=== PATIENT | female | born 1980 | race Caucasian/White ===

== ENCOUNTER 2017-08-06 21:33 | Inpatient (IN) | payer MEDICAID ==
[2017-08-06 22:18] LABS: APPEARANCE,URINE SLIGHTLY-CLOUDY; BILIRUBIN,URINE NEGATIVE (NEGATIVE); GLUCOSE, URINE >=500 mg/dL (NEGATIVE); KETONES,URINE TRACE mg/dL (NEGATIVE); LEUKOCYTE ESTERASE,URINE TRACE (NEGATIVE); NITRITE,URINE NEGATIVE (NEGATIVE); PROTEIN,URINE 30 mg/dL (NEGATIVE); URINE SPECIFIC GRAVITY 1.033; UROBILINOGEN,URINE NEGATIVE mg/dL (<2.0)
[2017-08-06 22:29] LABS: ABSOLUTE LYMPHOCYTES (AUTO) 2.1 10^3/uL (0.5-4.7); ABSOLUTE MONOCYTES (AUTO) 0.7 10^3/uL (0.1-1.4); ABSOLUTE NEUT (AUTO) 11.8 10^3/uL (1.7-8.2); BASOPHILS % (AUTO) 0.3 % (0-2); EOSINOPHILS % (AUTO) 0.2 % (0-6); HEMATOCRIT 40.8 % (36.0-47.0); HEMOGLOBIN 13.9 g/dL (12.0-15.5); HGB HCT DIFFERENCE 0.9; LYMPHOCYTES % (AUTO) 14.2 % (13-45); MEAN CORPUSCULAR HEMOGLOBIN 31.1 pg (27.0-33.4); MEAN CORPUSCULAR HGB CONC 34.1 g/dL (32.0-36.0); MEAN CORPUSCULAR VOLUME 91 fl (80-97); MONOCYTES % (AUTO) 4.5 % (3-13); RED BLOOD COUNT 4.49 10^6/uL (3.72-5.28); RED CELL DISTRIBUTION WIDTH 13.1 % (11.5-14.0); SEGMENTED NEUTROPHILS % (AUTO) 80.8 % (42-78); WHITE BLOOD COUNT 14.6 10^3/uL (4.0-10.5)
[2017-08-06] MEDS ORDERED: DINOPROSTONE 10 MG VAGINAL INSERT.SR PV PRN (22:44)
[2017-08-06] MEDS ORDERED: ACETAMINOPHEN 325 MG TABLET PO PRN (22:45)
[2017-08-06 22:46] LABS: URINE BARBITURATES SCREEN NEGATIVE; URINE METHADONE SCREEN NEGATIVE; URINE OPIATES LOW NEGATIVE; URINE PHENCYCLIDINE SCREEN NEGATIVE
[2017-08-06] MEDS ORDERED: ZOLPIDEM TARTRATE 5 MG TABLET PO PRN (22:46)
[2017-08-06] MEDS ORDERED: MAG HYDROX/AL HYDROX/SIMETH SUSP 30 ML UDCUP PO PRN (22:46)
[2017-08-06 22:50] LABS: ALANINE AMINOTRANSFERASE 40 U/L (9-52); ALBUMIN 3.3 g/dL (3.5-5.0); ALKALINE PHOSPHATASE 175 U/L (38-126); ANION GAP 12 (5-19); ASPARTATE AMINO TRANSFERASE 22 U/L (14-36); BILIRUBIN,DIRECT 0.3 mg/dL (0.0-0.4); BILIRUBIN,TOTAL 0.3 mg/dL (0.2-1.3); BLOOD UREA NITROGEN 15 mg/dL (7-20); CALCIUM 9.1 mg/dL (8.4-10.2); CARBON DIOXIDE 17 mmol/L (22-30); CHLORIDE 108 mmol/L (98-107); CREATININE RESULT 1.08 mg/dL (0.52-1.25); GLUCOSE 118 mg/dL (75-110); POTASSIUM 3.9 mmol/L (3.6-5.0); SODIUM 136.7 mmol/L (137-145); TOTAL PROTEIN 5.2 g/dL (6.3-8.2)
[2017-08-06] MEDS ORDERED: DINOPROSTONE 10 MG VAGINAL INSERT.SR ONE (22:55)
[2017-08-06] MEDS ORDERED: RINGERS SOLUTION,LACTATED 1,000 ML IV PRN (23:08)
[2017-08-06] MEDS ORDERED: RINGERS SOLUTION,LACTATED 1,000 ML IV ONE (23:45)
[2017-08-07] MEDS ORDERED: ZOLPIDEM TARTRATE 5 MG TABLET ONE ×2 (00:44→00:46)
[2017-08-07] MEDS ORDERED: PENICILLIN G-K 5 MILLION UNIT VIAL IV ONE ×2 (07:00→11:00)
[2017-08-07] MEDS ORDERED: PENICILLIN G POTASSIUM 5,000,000 UNIT in DEXTROSE 5%-WATER 100 ML IV SCH (07:00)
[2017-08-07] MEDS ORDERED: PENICILLIN G-K 5 MILLION UNIT VIAL ONE ×2 (10:31→14:15)
--- NOTE | 2017-08-07 10:39 | L&D Progress Notes ---
PROGRESS NOTES Datetime Report Generated by CPN: 08/07/2017 10:38 PROGRESS NOTE Impression: Normal Progression of Labor; Reassuring Heart Rate Impression: Normal Progression of Labor; Reassuring Heart Rate Procedures: Sterile Vag Exam Procedures: Sterile Vag Exam Procedures- Other: srom, cervidil removed Procedures- Other: srom, cervidil removed Plan: Continue Present Management; Induction Plan: Continue Present Management; Induction Plan Other: start pitocin Informed Consent Obtained: Vaginal Delivery Informed Consent Obtained: Vaginal Delivery Vital Signs : Reviewed Vital Signs : Reviewed Comment: Start pcn Pit per protocol anticipate VAGINAL EXAM Dilatation: 4 Dilatation: 4 Effacement: 100 Effacement: 100 Station: 0 Station: 0 Contractions: 2-3 Contractions: 2-3 MEMBRANES Membranes: Ruptured Membranes: Intact Amniotic Fluid Color: Clear FETUS A FHR - Baseline: 135 Monitoring: External US Variability: Moderate 6-25bpm Accelerations: 15X15 Decelerations: None FHR Category: Category I Estimated Weight (gm): 3200 Estimated Weight (gm): 3200 Presentation: Vertex SIGNATURE SIGNATURE: [id number] SIGNATURE: [id number] Assignment: Duran Patterson MD Signature: with User ID: [email or web address] : with User ID: [email or web address]
[2017-08-07] MEDS ORDERED: PENICILLIN G POTASSIUM 2,500,000 UNIT in DEXTROSE 5%-WATER 50 ML IV SCH (11:00)
[2017-08-07] MEDS ORDERED: OXYTOCIN/NORMAL SALINE 20 UNIT/1,000 ML RTUINJ IV PRN ×2 (11:24→16:03)
[2017-08-07] MEDS ORDERED: OXYTOCIN/NORMAL SALINE 20 UNIT/1,000 ML RTUINJ ONE (11:27)
[2017-08-07] MEDS ORDERED: LIDOCAINE 1% INJ-PF (10 MG/ML) 30 ML SDV ONE (12:36)
[2017-08-07] MEDS ORDERED: MISOPROSTOL 0.2 MG TABLET ONE (12:36)
[2017-08-07] MEDS ORDERED: MEASLES,MUMPS&RUBELLA VACC/PF 0.5 ML VIAL SUBCUT PRN (16:03)
[2017-08-07] MEDS ORDERED: ACETAMINOPHEN WITH CODEINE #3 TABLET PO PRN ×2 (16:03)
[2017-08-07] MEDS ORDERED: ZOLPIDEM TARTRATE 5 MG TABLET PO PRN (16:03)
[2017-08-07] MEDS ORDERED: DIBUCAINE 1% OINTMENT 28 GM TP PRN (16:03)
[2017-08-07] MEDS ORDERED: BENZOCAINE/MENTHOL AEROSOL SPRAY 56 ML TOP PRN (16:03)
[2017-08-07] MEDS ORDERED: DIPH/PERTUSS(ACELL)/TETANUS VAC/PF 0.5 ML SYR (>=10YO) IM PRN (16:03)
--- NOTE | 2017-08-07 17:12 | Admission Physical ---
Datetime Report Generated by CPN: 08/07/2017 17:12 CURRENT ADMISSION Hx Assessment: The History has been Reviewed and is Current Chief Complaint: Scheduled Induction of Labor Indication for Induction: Maternal Diabetes Indication for Induction: Term, Intrauterine ; No Active Labor; Intact Membranes; Induction of Labor Indication for Induction- Other: AMA Admit Plan: Admit to Unit; Initiate Labor Induction Protocol ALLERGIES Medication Allergies: No Medication Allergies: No Known Allergies (08/06/2017) Medication Allergies: No Known Allergies (07/24/2017) Latex: No Latex Allergies OBSTETRICAL HISTORY EDC: 08/07/2017 00:00 : 2 Para: 0 Term: 0 : 0 SAB: 0 IAB: 1 Ectopic: 0 Livin Cesareans: 0 VBACs: 0 Multiple Births: 0 Gestational Diabetes: Yes Rh Sensitization: No Incompetent Cervix: No EDNA: No Infertility: No ART Treatment: No Uterine Anomaly: No IUGR: No Hx Previous C/S: No Macrosomia: No Hx Loss/Stillborn: No PIH: No Hx : No Placenta Previa/Abruption: No Depression/PP Depression: No PTL/PROM: No Post Hemorrhage: No Current Procedures: Ultrasound; NST Obstetrical History Comments: G1- IAB G2- current SEE RECORDS Alcohol: No Marijuana : No Cocaine: No Other Illicit Drugs: No Cigarettes: Current Everyday Smoker. [id number] Cigarette Frequency: > 10 per day Advised to Stop: Yes Cigarette Comments: About a pack a day MEDICAL HISTORY Diabetes: Yes Diabetes Type: Gestational Diabetes Blood Transfusion: No Pulmonary Disease (Asthma, TB): No Breast Disease: No Hypertension: No Egg Producer Surgery: No Heart Disease: No Hosp/Surgery: Yes Autoimmune Disorder: No Anesthetic Complications: No Kidney Disease: No Abnormal Pap Smear: No Neuro/Epilepsy: No Psychiatric Disorders: Yes Other Medical Diseases: No Hepatitis/Liver Disease: No Significant Family History: No Varicosities/Phlebitis: No Trauma/Violence : No Thyroid Dysfunction: No Medical History Comments: [place] teeth removed, anxiety (never taken any meds for anxiety) INFECTIOUS HISTORY Gonorrhea: No Genital Herpes: No Chlamydia: No Tuberculosis: No Syphilis: No Hepatitis: No HIV/AIDS Exposure: No Rash or Viral Illness: No HPV: No Infectious History Comments: Genital warts PHYSICAL EXAM General: Normal HEENT: Normal Neurologic: Normal Thyroid: Deferred Heart: Normal Lungs: Normal Breast: Normal Back: Normal Abdomen: Normal Genitourinary Exam: Normal Extremities: Normal DTRs: Normal Pelvic Type: Adequate Vital Signs: Reviewed VAGINAL EXAM Dilatation: 4 Dilatation: 4 Effacement: 100 Effacement: 100 Station: 0 Station: 0 Contraction Comments: 2-3 Contraction Comments: 2-3 MEMBRANES Membranes: Ruptured Membranes: Intact Amniotic Fluid Color: Clear FETUS A EGA: 40.0 Monitoring: External US FHR- Baseline: 135 Variability: Moderate 6-25bpm Accelerations: 15X15 Decelerations: None FHR Category: Category I Estimated Weight (gm): 3200 Estimated Weight (gm): 3200 Presentation: Vertex Admit Comment: admit to l _ d, term prengnacy gdm, self d/c glyburide rh neg, AMA, hx: anogenital wards, smoker GBS +, pcn see prentatal records for complete hx cervidil over night PLANS FOR LABOR AND DELIVERY Labor and Delivery: None Pain Management: Natural Other Pain Management Plans: See how it goes Feeding Preference: Breast Benefit of Breast Feed Discussed: Yes Circumcision: N/A INFORMED CONSENT Informed Consent Obtained: Vaginal Delivery Informed Consent Obtained: Vaginal Delivery Assignment: Duran Patterson MD Signature: with User ID: [email or web address] : with User ID: [email or web address]
--- NOTE | 2017-08-07 17:28 | Delivery Summary ---
Del Sum A-C Datetime Report Generated by CPN: 08/07/2017 17:28 DELIVERY PERSONNEL DELIVERY PERSONNEL: [id number] Delivery Doctor:: Saray Levine CNM Nurse Fashion Director Certified:: Saray Levine CNM Labor and Delivery Nurse:: JAYLIN Clifton/PEDIATRIC SPEECH THERAPIST: Evelin Cho CNA II Additional Personnel: : MARIANA Johns MATERNAL INFORMATION Delivery Anesthesia: None Medications After Delivery: Pitocin Bolus-Please Comment; Pitocin Drip 20 Units/1000ml NSS Estimated Blood Loss (ml): 250 Maternal Complications: None Provider Comments: of viable female infant, head delivered loose nuchal reduced, shoulders and body delivered without difficulty, infant with spontaneous cry and respirations, to maternal abdomen, cord clamped X2 cut free after 2 min delay, spontaneous delivery of placenta via osuna, appears intact 3 VC. vagina and perineum insepcted, lacerations repaired as above using lidociane for anethesia. hemostasis acheived with external fundal massage and IV pitocin, routine pp care, mother and baby in stable condition. LABOR SUMMARY EDC: 08/07/2017 00:00 No. Babies in Womb: 1 Attempted: No Labor Anesthesia: None LABOR INFORMATION Reason for Induction: Maternal Diabetes Onset of Labor: 08/07/2017 10:25 Complete Dilatation: 08/07/2017 14:19 Cervical Ripening Agents: Cervidil Oxytocin: Induction Group B Beta Strep: Positive Antibiotics # of Doses: 2 Antibiotics Time of Last Dose: 1419 Name of Antibiotic Given: Penicillin G Steroids Given: None Reason Steroids Not Administered: Not Applicable MEMBRANES Membranes Rupture Method: Spontaneous Rupture of Membranes: 08/07/2017 10:03 Length of Rupture (hr): 5.42 Amniotic Fluid Color: Clear Amniotic Fluid Amount: Moderate Amniotic Fluid Odor: Normal STAGES OF LABOR Stage 1 hr: 3 Stage 1 min: 54 Stage 2 hr: 1 Stage 2 min: 9 Stage 3 hr: 0 Stage 3 min: 3 Total Time in Labor hr: 5 Total Time in Labor min: 6 VAGINAL DELIVERY Episiotomy: None Laceration Extension #1: First Degree Laceration #2: None Laceration Extension #2: N/A Laceration #3: None Laceration Extension #3: N/A Other Laceration: Labial bilateral Laceration Repair: Yes Sponge Count Correct: N/A Sharps Count Correct: N/A CSECTION DELIVERY Primary Indication: N/A Secondary Indication: N/A CSection Incidence: N/A Labor: N/A Elective: N/A CSection Incision: N/A BABY A INFORMATION Infant Delivery Date/Time: 08/07/2017 15:28 Method of Delivery: Vaginal Born in Route : No : N/A Forceps: N/A Vacuum Extraction: N/A Shoulder Dystocia : Yes PRESENTATION/POSITION BABY A Presentation: Cephalic Cephalic Presentation: Vertex Vertex Position: Left Occipital Anterior Breech Presentation: N/A PLACENTA INFORMATION BABY A Placenta Delivery Time : 08/07/2017 15:31 Placenta Method of Delivery: Spontaneous Placenta Status: Delivered SCORES BABY A Heart Rate 1 min: >100 bpm Resp Effort 1 min: Good Cry Reflex Irritability 1 min: Cough or Sneeze or Pulls Away Muscle Tone 1 min: Active Motion Color 1 min: Body [place], Extremities Blue Resuscitation Effort 1 min: Tactile Stimulation SCORE 1 MIN: 9 Heart Rate 5 min: >100 bpm Resp Effort 5 min: Good Cry Reflex Irritability 5 min: Cough or Sneeze or Pulls Away Muscle Tone 5 min: Active Motion Color 5 min: Body [place], Extremities Blue Resuscitation Effort 5 min: Tactile Stimulation SCORE 5 MIN: 9 INFORMATION BABY A Gestational Age at Delivery: 40.0 Gestational Status: Full Term- 39- 40.6 Weeks Outcome : Liveborn Condition : Stable Infant Sex: Female IDENTIFICATION BABY A Infant Verification Date/Time: 08/07/2017 15:50 ID Band Number: [id number] Mother's Name Verified: Yes Infant RN Verifying : B [place] Additional Verifying Personnel: D [place] RNC WEIGHT/LENGTH BABY A Birthweight (gm): 2825 Infant Weight (lb): 6 Infant Weight (oz): 4 Infant Length (in): 18.50 Length (cm): 46.99 CORD INFORMATION BABY A No. Cord Vessels: 3 Nuchal Cord : Around Neck x1, Loose Cord Blood Taken: Yes-For Eval (Mom's Blood Type - or O+) Infant Suction: Mouth ASSESSMENT BABY A Complications: Multiple Variable Decels Physical Findings at Delivery: Molding of the Head Infant Respirations: Appears Normal Skin to Skin: Yes Skin to Skin Time (min): 60 Social Worker Aide/ALS Called : No Infant Care By: D Viv RN Transferred To: Remains with Mother SIGNATURES Assignment: Duran Patterson MD Signature: with User ID: [email or web address] : with User ID: [email or web address]
[2017-08-07] MEDS: IBUPROFEN 800 MG TABLET PO SCH (21:55)
[2017-08-08] MEDS: IBUPROFEN 800 MG TABLET PO SCH ×3 (05:40→21:36)
[2017-08-08] MEDS: DOCUSATE SODIUM 100 MG CAPSULE PO SCH ×3 (06:10→17:20)
[2017-08-08] MEDS: FERROUS SULFATE 325 MG TABLET PO SCH ×3 (06:10→17:20)
[2017-08-08 07:49] LABS: HEMATOCRIT 36.5 % (36.0-47.0); HEMOGLOBIN 12.4 g/dL (12.0-15.5); HGB HCT DIFFERENCE 0.7; MEAN CORPUSCULAR HEMOGLOBIN 31.1 pg (27.0-33.4); MEAN CORPUSCULAR HGB CONC 33.9 g/dL (32.0-36.0); MEAN CORPUSCULAR VOLUME 92 fl (80-97); RED BLOOD COUNT 3.98 10^6/uL (3.72-5.28); RED CELL DISTRIBUTION WIDTH 13.5 % (11.5-14.0); WHITE BLOOD COUNT 15.3 10^3/uL (4.0-10.5)
[2017-08-08] MEDS: SENNOSIDES/DOCUSATE 8.6-50 MG 1 EACH TABLET PO SCH (09:45)
[2017-08-08] MEDS: PRENATAL VITAMIN W DHA CAPSULE PO SCH (09:45)
--- NOTE | 2017-08-08 11:21 | PDOC PROGRESS REPORT ---
Subjective-OB Subjective: Post Delivery Day: 1 36 year old. Denies any needs at this time, tolerating diet, lochia is stable, voiding without difficulty, pain well controlled. Physical Exam (OB) Vital Signs: Temp Pulse Resp BP Pulse Ox 98.3 F 58 L 16 102/89 H 99 08/08/17 08:00 08/08/17 08:00 08/08/17 08:00 08/08/17 08:00 08/08/17 08:00 Intake & Output 08/07/17 08/08/17 08/09/17 06:59 06:59 06:59 Weight 106.65 kg - PIH/Pre-Eclampsia DTR's: 1 + Clonus: Negative Headache: Absent Epigastric Pain: No Visual Changes: No - Lochia Lochia Amount: Small 10-25 ml Lochia Color: Rubra/Red - Abdomen Description: Soft, Round Hernia Present: No Fundal Description: Firm, Midline Fundal Height: u/u - u/2 Objective-Diagnostic Laboratory: 08/08/17 07:03 08/06/17 22:04 08/08/17 08/08/17 07:03 07:03 WBC 15.3 H RBC 3.98 Hgb 12.4 Hct 36.5 MCV 92 MCH 31.1 MCHC 33.9 RDW 13.5 Plt Count 146 L Blood Type A NEGATIVE Assessment and Plan(PN) - Assessment and Plan (1) Vaginal delivery Is this a current diagnosis for this admission?: Yes Plan: routine pp care (2) GDM, class A2 Is this a current diagnosis for this admission?: Yes Plan: yearly follow up (3) Smoker Is this a current diagnosis for this admission?: Yes Plan: cessation encouraged - Time Spent with Patient Time with patient: Less than 15 minutes Critical Time spent with patient: Less than 15 minutes Smoking Education Provided: Over 3 minutes Medications reviewed and adjusted accordingly: Yes - Disposition Anticipated Discharge: Home Within: within 24 hours
[2017-08-09] MEDS: IBUPROFEN 800 MG TABLET PO SCH ×2 (06:39→13:18)
--- NOTE | 2017-08-09 09:11 | PDOC DISCHARGE SUMMARY ---
Final Diagnosis Discharge Date: 08/09/17 - Final Diagnosis (1) GDM, class A2 Is this a current diagnosis for this admission?: Yes (2) Vaginal delivery Is this a current diagnosis for this admission?: Yes (3) Smoker Is this a current diagnosis for this admission?: Yes Discharge Data - Discharge Medication Home Medications: Ranitidine HCl [Zantac 150 mg Tablet] 1 tab PO DAILY 07/24/17 Vit/Iron Fum/Folic AC [ Tablet] 1 each PO DAILY 08/06/17 Docusate Sodium [Colace 100 mg Capsule] 100 mg PO BID #60 capsule 08/09/17 Ibuprofen [Motrin 800 mg Tablet] 800 mg PO Q8 #60 tablet 08/09/17 Gestational Age: 40 Reason(s) for Admission: Induction of Labor, Group B Strep Positive Procedures: NST Intrapartum Procedure(s): Spontaneous Vaginal Delivery Complication(s): Laceration-Vaginal, Laceration-Periurethral Laceration-Degree: 1st - [place] Data Baby 1 Female at 1 minute: 9 at 5 minutes: 9 Weight: 2825 kg Home with Mother: Yes Complications: No - Diagnosis Test Laboratory: Temp Pulse Resp BP Pulse Ox 97.6 F 80 16 133/76 H 100 08/09/17 08:57 08/09/17 08:57 08/09/17 08:57 08/09/17 08:57 08/09/17 08:57 08/06/17 08/06/17 08/08/17 21:50 22:04 07:03 RBC 4.49 3.98 Hgb 13.9 12.4 Hct 40.8 36.5 Urine Opiates Screen NEGATIVE - Discharge information/Instructions Discharge Activity: Activity As Tolerated, Balance Activity w/Rest, No Lifting Over 10 Pounds, No Lifting/Push/Pulling, Pelvic Rest, No tub bath Discharge Diet: Regular Disposition: HOME, SELF-CARE Follow up with: [facility] in: 4, Weeks
[2017-08-09] MEDS: SENNOSIDES/DOCUSATE 8.6-50 MG 1 EACH TABLET PO SCH (09:36)
[2017-08-09] MEDS: FERROUS SULFATE 325 MG TABLET PO SCH (09:36)
[2017-08-09] MEDS: PRENATAL VITAMIN W DHA CAPSULE PO SCH (09:36)
[2017-08-09] MEDS: DOCUSATE SODIUM 100 MG CAPSULE PO SCH (09:36)
[2017-08-09 10:30] VITALS: BP 144/82
== END 2017-08-09 14:51 | disposition home or self-care (01) | DRG 775 ==
LOC: LR 21:33 → 2S 08-07 17:10
PROVIDERS: ADMIT Obstetrics & Gynecology Gynecology; ATTEND Obstetrics & Gynecology Gynecology
PROC: 10E0XZZ Delivery of Products of Conception, External Approach (ICD-10-PCS; principal; 2017-08-07)
PROC: 0HQ9XZZ Repair Perineum Skin, External Approach (ICD-10-PCS; 2017-08-07)
PROC: 3E0234Z Introduction of Serum, Toxoid and Vaccine into Muscle, Percutaneous Approach (ICD-10-PCS; 2017-08-08)
DX: O99.334 Smoking (tobacco) complicating childbirth (principal); O36.0930 Maternal care for other rhesus isoimmunization, third trimester, not applicable or unspecified; F17.210 Nicotine dependence, cigarettes, uncomplicated; O24.425 Gestational diabetes mellitus in childbirth, controlled by oral hypoglycemic drugs; O69.81X0 Labor and delivery complicated by cord around neck, without compression, not applicable or unspecified; O99.824 Streptococcus B carrier state complicating childbirth; O70.0 First degree perineal laceration during delivery; O76 Abnormality in fetal heart rate and rhythm complicating labor and delivery; Z3A.40 40 weeks gestation of pregnancy; Z37.0 Single live birth; Z71.6 Tobacco abuse counseling; O99.214 Obesity complicating childbirth; E66.9 Obesity, unspecified; O34.83 Maternal care for other abnormalities of pelvic organs, third trimester; N83.201 Unspecified ovarian cyst, right side; Z68.38 Body mass index [BMI] 38.0-38.9, adult
CPT/HCPCS: 36415; 80053; 80307; 81005; 85025; 85027; 85461; 86592; 86850; 86870; 86900; 86901; G0480; J2540; J2590; J2790; J3490

== ENCOUNTER → 2019-01-19 | Outpatient (CLI) | payer MEDICAID ==
--- NOTE | 2019-01-19 15:33 | RADIOLOGY REPORT (SQ) ---
EXAM DESCRIPTION: C SP 4 OR 5 VIEWS COMPLETED DATE/TIME: 01/19/2019 2:14 pm REASON FOR STUDY: CHRONIC CERVICAL RADICULOPATHY M54.12 RADICULOPATHY, CERVICAL REGION COMPARISON: None. NUMBER OF VIEWS: Five views. TECHNIQUE: AP, lateral, swimmer's lateral, obliques and odontoid radiographic images acquired of the cervical spine. LIMITATIONS: None. FINDINGS: MINERALIZATION: Normal. ALIGNMENT: Anatomic. VERTEBRAE: Vertebral bodies of normal height. DISCS: Disc spaces are narrowed at C5-6 and C6-7. Small marginal osteophytes are present. FORAMINA: No osteophytes or foraminal narrowing. LATERAL AND POSTERIOR ELEMENTS: Facets, lateral masses and spinous processes without significant find ings. HARDWARE: None in the spine. SOFT TISSUES: No masses or calcifications. Lung apices clear. OTHER: No other significant finding. IMPRESSION: Degenerative disc disease and spondylosis. No acute finding. TECHNICAL DOCUMENTATION: JOB ID: [id number] [employer]- All Rights Reserved Reading location - IP/workstation name: [email or web address]
== END ==
LOC: OD 13:50
PROVIDERS: ATTEND Nurse Practitioner Family
DX: M50.123 Cervical disc disorder at C6-C7 level with radiculopathy (principal)
CPT/HCPCS: 72050

== ENCOUNTER 2019-03-18 10:45 | Day surgery (SDC) | payer MEDICAID ==
[2019-03-18] MEDS ORDERED: DOXYCYCLINE HYCLATE 100 MG in DEXTROSE 5%-WATER 250 ML IV PRN (10:59)
[2019-03-18 11:17] LABS: APPEARANCE,URINE CLOUDY; BILIRUBIN,URINE NEGATIVE (NEGATIVE); COLOR,URINE YELLOW; GLUCOSE, URINE NEGATIVE (NEGATIVE); KETONES,URINE NEGATIVE (NEGATIVE); LEUKOCYTE ESTERASE,URINE SMALL (NEGATIVE); NITRITE,URINE NEGATIVE (NEGATIVE); PROTEIN,URINE NEGATIVE (NEGATIVE); URINE SPECIFIC GRAVITY 1.019; UROBILINOGEN,URINE NEGATIVE mg/dL (<2.0)
[2019-03-18 11:28] LABS: HEMATOCRIT 41.1 % (36.0-47.0); HEMOGLOBIN 13.8 g/dL (12.0-15.5); MEAN CORPUSCULAR HEMOGLOBIN 29.4 pg (27.0-33.4); MEAN CORPUSCULAR HGB CONC 33.6 g/dL (32.0-36.0); MEAN CORPUSCULAR VOLUME 87 fl (80-97); PLATELET COUNT 202 10^3/uL (150-450); RED CELL DISTRIBUTION WIDTH 13.7 % (11.5-14.0); WHITE BLOOD COUNT 10.1 10^3/uL (4.0-10.5)
[2019-03-18] MEDS ORDERED: METOCLOPRAMIDE HCL INJ/PF 10 MG/2 ML SDV ONE (11:36)
[2019-03-18] MEDS ORDERED: SCOPOLAMINE HYDROBROMIDE 1.5 MG PATCH.TD72 ONE (11:39)
[2019-03-18] MEDS ORDERED: FAMOTIDINE INJ/PF 20 MG/2 ML SDV IV ONE (11:39)
[2019-03-18] MEDS ORDERED: MIDAZOLAM 2 MG/2 ML INJ ONE ×2 (11:39→12:20)
[2019-03-18] MEDS ORDERED: ALBUTEROL SULFATE 0.083% NEB 2.5 MG/3 ML AMPUL NEB ONE (11:39)
[2019-03-18] MEDS ORDERED: RINGERS SOLUTION,LACTATED 1,000 ML IV ONE (12:00)
[2019-03-18] MEDS ORDERED: MISOPROSTOL 0.2 MG TABLET ONE (12:18)
[2019-03-18] MEDS ORDERED: METHYLERGONOVINE MALEATE INJ/PF 0.2 MG/1 ML AMPULE ONE (12:18)
[2019-03-18] MEDS ORDERED: FENTANYL CITRATE INJ/PF 100 MCG/2 ML AMPUL ONE (12:20)
[2019-03-18] MEDS ORDERED: PROPOFOL INJ 200 MG/20 ML VIAL IV ONE (12:20)
[2019-03-18] MEDS ORDERED: FENTANYL CITRATE INJ/PF 100 MCG/2 ML AMPUL IV PRN ×3 (13:05)
[2019-03-18] MEDS ORDERED: ONDANSETRON HCL INJ/PF 4 MG/2 ML SDV IV PRN ×2 (13:05→13:26)
[2019-03-18] MEDS ORDERED: PROMETHAZINE HCL INJ 25 MG/1 ML VIAL IV PRN ×3 (13:05→13:26)
[2019-03-18] MEDS ORDERED: DIPHENHYDRAMINE HCL 50 MG/ML VIAL IV PRN (13:05)
--- NOTE | 2019-03-18 13:17 | Operative Report ---
Operative Report DATE OF SURGERY: 03/18/19 PREOPERATIVE DIAGNOSIS: 1. Missed at 7-5/7 weeks. 2. Rh Negative POSTOPERATIVE DIAGNOSIS: Same OPERATION: Suction dilatation and curettage SURGEON: SATHISH HERNANDEZ ANESTHESIA: GA TISSUE REMOVED OR ALTERED: Products of conception COMPLICATIONS: None ESTIMATED BLOOD LOSS: 150 ml INTRAOPERATIVE FINDINGS: Uterus sounded 8 cm; 10 mm Pakistani curved curette used; moderate amounts of products of conception PROCEDURE: The patient was taken to the Operating Room where general anesthesia was obtained without difficulty. She was prepped and draped in the normal sterile fashion in the dorsal lithotomy position. Exam under anesthesia was performed and noted above. A speculum was placed in the vagina. The anterior cervix was grasped with a single-tooth tenaculum and the uterus sounded to 8 cm. The cervix was noted to be slightly dilated at the beginning of the procedure. Sequential dilators were then used to dilate the cervix to accommodate the 10 mm suction curved Pakistani curette. The 10 mm curved suction curette was gently ad vanced in the usual fashion and good return of tissue. The suction device was then activated and the curette rotated to clear the uterus of the products of conception. A sharp curettage was then performed. The suction device was then gently reintroduced and activated and the curet rotated to clear the uterus of conception which was loosened with recent sharp curettage. The sharp curettage was then performed again until a gritty texture was noted and the cavity was felt to be empty of further tissue. At this time there was minimal bleeding noted from the cervix. All instruments were removed from the patient's cervix and vagina. Tenaculum site was hemostatic Sponge, lap, and instrument counts are correct 2. Doxycycline 100 mg IV was given perioperatively, as well as Cytotec 800 mcg per rectum, postoperatively. The patient tolerated the procedure well and was taken to the recovery area awake and in stable condition. The patient was discharged.
[2019-03-18] MEDS ORDERED: OXYCODONE-ACETAMINOPHEN 5-325 MG TABLET PO PRN (13:25)
[2019-03-18 14:48] VITALS: BP 147/80
[2019-03-18] MEDS ORDERED: ONDANSETRON HCL INJ/PF 4 MG/2 ML SDV ONE (18:20)
[2019-03-18] MEDS ORDERED: KETOROLAC TROMETHAMINE 60 MG/2 ML SDV ONE (18:20)
[2019-03-18] MEDS ORDERED: DEXAMETHASONE SOD PHOSPHATE INJ 4 MG/1 ML VIAL ONE (18:20)
[2019-03-18] MEDS ORDERED: LIDOCAINE 2% INJ-PF (20 MG/ML) 2 ML AMPUL ONE (18:20)
== END 2019-03-18 14:50 | disposition home or self-care (01) ==
LOC: OROUT 10:45
PROVIDERS: ATTEND Obstetrics & Gynecology
DX: O02.1 Missed abortion (principal); E66.9 Obesity, unspecified; Z68.41 Body mass index [BMI] 40.0-44.9, adult; Z67.11 Type A blood, Rh negative; F17.210 Nicotine dependence, cigarettes, uncomplicated
CPT/HCPCS: 86900; 86901; 36415; 86850; 85027; 81001; 88305 ×2; 01965; 59820; J2790; J2250; J1100; J3490 ×3; J1885; J3010; J2765; J2405; J7060; J2704; S0028; 1965; J2210

== ENCOUNTER 2020-01-26 13:02 | Outpatient (CLI) | payer MEDICAID ==
--- NOTE | 2020-01-26 13:44 | Non Stress Test Report ---
Non Stress Test Datetime Report Generated by CPN: 01/26/2020 13:44 INDICATION Indication for Study (NST) Other: AMA VITAL SIGNS Temperature - NST: 97.6 Pulse - NST: 86 RESP - NST: 18 NBPSYS NST: 118 NBPDIA NST: 65 MONITORING Monitor Explained: Monitor Explained; Test Explained; Patient Verbalized Understanding Time on Monitor: 01/26/2020 13:13 Time off Monitor: 01/26/2020 13:33 NST Duration: 20 NST INTERVENTIONS NST Interventions: PO Hydration Physician Notified NST: KDuncan,DRAPERY AND UPHOLSTERY MEASURER A: [id number] BABY A Movement : Present Contraction Frequency : none FHR Baseline : 120 Accelerations : 15X15 Decelerations : None Variability : Moderate 6-25bpm NST Review: Meets Criteria for Reactive NST NST Review and Verified By : Sabrina Castro RN NST Results: Reactive NST REPORT Report Trigger: Send Report
== END 2020-01-26 13:37 | disposition home or self-care (01) ==
LOC: LC 13:02
PROVIDERS: ATTEND Obstetrics & Gynecology Gynecology
DX: O09.523 Supervision of elderly multigravida, third trimester (principal); Z3A.00 Weeks of gestation of pregnancy not specified
CPT/HCPCS: 59025

== ENCOUNTER 2020-01-30 11:44 | Outpatient (CLI) | payer MEDICAID ==
--- NOTE | 2020-01-30 12:53 | Non Stress Test Report ---
Non Stress Test Datetime Report Generated by CPN: 01/30/2020 12:53 DEMOGRAPHIC Test Number: 1 EGA NST: 39.2 INDICATION Indication for Study (NST) Other: nonreactive NST in office VITAL SIGNS Temperature - NST: 98.2 Pulse - NST: 78 RESP - NST: 20 NBPSYS NST: 141 NBPDIA NST: 63 MONITORING Monitor Explained: Monitor Explained; Test Explained; Patient Verbalized Understanding Time on Monitor: 01/30/2020 12:00 Time off Monitor: 01/30/2020 12:35 NST Duration: 35 NST INTERVENTIONS NST Interventions: PO Hydration Physician Notified NST: K. Herndon, CNM BABY A: [id number] BABY A Movement : Present Contraction Frequency : occasional FHR Baseline : 130 Accelerations : 15X15 Decelerations : None Variability : Moderate 6-25bpm NST Review: Meets Criteria for Reactive NST NST Review and Verified By : SAutry NST Results: Reactive NST REPORT Report Trigger: Send Report
[2020-01-30] MEDS ORDERED: TERBUTALINE SULFATE INJ/PF 1 MG/1 ML SDV ONE (14:54)
== END 2020-01-30 12:55 | disposition home or self-care (01) ==
LOC: LC 11:44
PROVIDERS: ATTEND Student in an Organized Health Care Education/Training Program
DX: O09.523 Supervision of elderly multigravida, third trimester (principal); O26.893 Other specified pregnancy related conditions, third trimester; R94.39 Abnormal result of other cardiovascular function study; Z3A.39 39 weeks gestation of pregnancy
CPT/HCPCS: 59025; J3105

== ENCOUNTER 2020-01-31 22:10 | Inpatient (IN) | payer MEDICAID ==
[2020-01-31] MEDS ORDERED: ACETAMINOPHEN 325 MG TABLET PO PRN (23:56)
[2020-01-31] MEDS ORDERED: ZOLPIDEM TARTRATE 5 MG TABLET PO PRN (23:56)
[2020-01-31] MEDS ORDERED: MAG HYDROX/AL HYDROX/SIMETH SUSP 30 ML UDCUP PO PRN (23:56)
[2020-01-31] MEDS ORDERED: DINOPROSTONE 10 MG VAGINAL INSERT.SR PV ONE (23:56)
[2020-02-01] MEDS ORDERED: RINGERS SOLUTION,LACTATED 1,000 ML IV ONE (00:01)
[2020-02-01] MEDS ORDERED: RINGERS SOLUTION,LACTATED 1,000 ML IV PRN (00:03)
[2020-02-01 00:07] LABS: ABSOLUTE BASOPHILS # (AUTO) 0.1 10^3/uL (0.0-0.2); ABSOLUTE EOSINOPHILS # (AUTO) 0.1 10^3/uL (0.0-0.6); ABSOLUTE LYMPHOCYTES (AUTO) 2.4 10^3/uL (0.5-4.7); ABSOLUTE MONOCYTES (AUTO) 0.4 10^3/uL (0.1-1.4); ABSOLUTE NEUT (AUTO) 10.9 10^3/uL (1.7-8.2); BASOPHILS % (AUTO) 0.4 % (0-2); EOSINOPHILS % (AUTO) 0.6 % (0-6); HEMATOCRIT 38.2 % (36.0-47.0); HEMOGLOBIN 13.1 g/dL (12.0-15.5); LYMPHOCYTES % (AUTO) 17.3 % (13-45); MEAN CORPUSCULAR HEMOGLOBIN 31.4 pg (27.0-33.4); MEAN CORPUSCULAR HGB CONC 34.3 g/dL (32.0-36.0); MEAN CORPUSCULAR VOLUME 92 fl (80-97); MONOCYTES % (AUTO) 3.1 % (3-13); PLATELET COUNT 160 10^3/uL (150-450); RED BLOOD COUNT 4.18 10^6/uL (3.72-5.28); RED CELL DISTRIBUTION WIDTH 13.8 % (11.5-14.0); SEGMENTED NEUTROPHILS % (AUTO) 78.6 % (42-78); TOTAL CELLS COUNTED % (AUTO) 100 %; WHITE BLOOD COUNT 13.9 10^3/uL (4.0-10.5)
[2020-02-01] MEDS ORDERED: DINOPROSTONE 10 MG VAGINAL INSERT.SR ONE (00:09)
[2020-02-01 00:19] LABS: APPEARANCE,URINE CLEAR; BILIRUBIN,URINE NEGATIVE (NEGATIVE); COLOR,URINE YELLOW; GLUCOSE, URINE NEGATIVE (NEGATIVE); KETONES,URINE NEGATIVE (NEGATIVE); LEUKOCYTE ESTERASE,URINE LARGE (NEGATIVE); NITRITE,URINE NEGATIVE (NEGATIVE); PROTEIN,URINE NEGATIVE (NEGATIVE); URINE SPECIFIC GRAVITY 1.015; UROBILINOGEN,URINE NEGATIVE mg/dL (<2.0)
[2020-02-01] MEDS ORDERED: PENICILLIN G POTASSIUM 5,000,000 UNIT in DEXTROSE 5%-WATER 100 ML IV ONE ×2 (00:30→08:45)
[2020-02-01 00:40] LABS: URINE AMPHETAMINES SCREEN NEGATIVE; URINE BARBITURATES SCREEN NEGATIVE; URINE BENZODIAZEPINES SCREEN NEGATIVE; URINE COCAINE SCREEN NEGATIVE; URINE METHADONE SCREEN NEGATIVE; URINE PHENCYCLIDINE SCREEN NEGATIVE
[2020-02-01 00:46] LABS: URINE MARIJUANA (THC) SCREEN UNCONFIRMED POSITIVE
--- NOTE | 2020-02-01 07:38 | Admission Physical ---
Datetime Report Generated by CPN: 02/01/2020 07:38 CURRENT ADMISSION Chief Complaint: Scheduled Induction of Labor Indication for Induction: Maternal Diabetes Admit Impression : Term, Intrauterine ; Induction of Labor Admit Plan: Admit to Unit; Initiate Labor Induction Protocol ALLERGIES Medication Allergies: No Medication Allergies: No Known Allergies (01/30/2020) Latex: No Latex Allergies OBSTETRICAL HISTORY EDC: 02/04/2020 00:00 : 4 Para: 1 Term: 1 : 0 SAB: 1 IAB: 1 Livin Gestational Diabetes: Yes Rh Sensitization: No Incompetent Cervix: No EDNA: No Infertility: No ART Treatment: No Uterine Anomaly: No IUGR: No Hx Previous C/S: No Macrosomia: No Hx Loss/Stillborn: No PIH: No Hx : No Placenta Previa/Abruption: No Depression/PP Depression: No PTL/PROM: No Post Hemorrhage: No Current Procedures: Ultrasound; NST Obstetrical History Comments: 2008 EAB 2016 GDM, AMA full-term vaginal delivery 2018 SAB G4 - current, GDM, AMA SEE RECORDS Alcohol: No Marijuana : Yes Cocaine: No Other Illicit Drugs: No Cigarettes: Current Everyday Smoker. [id number] Cigarette Frequency: > 10 per day Advised to Stop: Yes Cigarette Comments: 1 pack a day MEDICAL HISTORY Diabetes: Yes Diabetes Type: Gestational Diabetes Blood Transfusion: No Pulmonary Disease (Asthma, TB): No Breast Disease: No Hypertension: No Senior Programmer Surgery: Yes Heart Disease: No Hosp/Surgery: Yes Autoimmune Disorder: No Anesthetic Complications: No Kidney Disease: No Abnormal Pap Smear: No Neuro/Epilepsy: No Psychiatric Disorders: No Other Medical Diseases: No Hepatitis/Liver Disease: No Significant Family History: No Varicosities/Phlebitis: No Trauma/Violence : No Thyroid Dysfunction: No Medical History Comments: D_C 2018; 2017 - vaginal delivery; throat abscess as teenager INFECTIOUS HISTORY Gonorrhea: No Genital Herpes: Yes Chlamydia: No Tuberculosis: No Syphilis: No Hepatitis: No HIV/AIDS Exposure: No Rash or Viral Illness: No HPV: Yes PHYSICAL EXAM General: Normal HEENT: Normal Neurologic: Normal Thyroid: Normal Heart: Normal Lungs: Normal Breast: Normal Back: Normal Abdomen: Normal Genitourinary Exam: Normal Extremities: Normal DTRs: Normal Pelvic Type: Adequate Vital Signs: Reviewed; Within Normal Limits MEMBRANES Pooling: Negative Membranes: Intact FETUS A EGA: 39.4 Monitoring: External US FHR- Baseline: 140 Variability: Moderate 6-25bpm Accelerations: 15X15 Decelerations: None FHR Category: Category I Estimated Weight (gm): 4000 Presentation: Vertex PLANS FOR LABOR AND DELIVERY Labor and Delivery: None Pain Management: Natural Feeding Preference: Both Benefit of Breast Feed Discussed: Yes Circumcision: N/A INFORMED CONSENT Signature: with User ID: [email or web address]
[2020-02-01] MEDS ORDERED: PROMETHAZINE HCL INJ 25 MG/1 ML VIAL ONE (08:12)
[2020-02-01] MEDS ORDERED: PROMETHAZINE HCL INJ 25 MG/1 ML VIAL IV ONE (08:29)
[2020-02-01] MEDS: PENICILLIN G POTASSIUM 2,500,000 UNIT in DEXTROSE 5%-WATER 50 ML IV SCH ×4 (08:35→17:00)
[2020-02-01] MEDS ORDERED: OXYTOCIN 10 UNIT/ML VIAL ONE (12:56)
[2020-02-01] MEDS ORDERED: MISOPROSTOL 0.2 MG TABLET ONE (12:57)
[2020-02-01] MEDS ORDERED: LIDOCAINE 1% INJ-PF (10 MG/ML) 30 ML SDV ONE (12:57)
[2020-02-01] MEDS ORDERED: OXYTOCIN/0.9 % SODIUM CHLORIDE 30 UNIT/500 ML RTUINJ ONE (12:57)
[2020-02-01] MEDS ORDERED: MAG HYDROX/AL HYDROX/SIMETH SUSP 30 ML UDCUP ONE (13:39)
[2020-02-01] MEDS ORDERED: OXYTOCIN/0.9 % SODIUM CHLORIDE 30 UNIT/500 ML RTUINJ IV PRN ×2 (13:44→18:29)
[2020-02-01] MEDS ORDERED: PROMETHAZINE HCL INJ 25 MG/1 ML VIAL IV PRN (18:29)
[2020-02-01] MEDS ORDERED: MAGNESIUM HYDROXIDE SUSP 30 ML UDCUP PO PRN (18:29)
[2020-02-01] MEDS ORDERED: PROMETHAZINE HCL 25 MG SUPP.RECT PR PRN (18:29)
[2020-02-01] MEDS ORDERED: BENZOCAINE/MENTHOL AEROSOL SPRAY 56 ML TOP PRN (18:29)
[2020-02-01] MEDS ORDERED: DIBUCAINE 1% OINTMENT 28 GM TP PRN (18:29)
[2020-02-01] MEDS ORDERED: ACETAMINOPHEN WITH CODEINE #3 TABLET PO PRN ×2 (18:29)
[2020-02-01] MEDS ORDERED: MEASLES,MUMPS&RUBELLA VACC/PF 0.5 ML VIAL SUBCUT PRN (18:29)
[2020-02-01] MEDS ORDERED: PROMETHAZINE HCL 25 MG TABLET PO PRN (18:29)
[2020-02-01] MEDS ORDERED: DIPHENHYDRAMINE HCL 25 MG CAPSULE PO PRN (18:29)
[2020-02-01] MEDS ORDERED: DIPH/PERTUSS(ACELL)/TETANUS VAC/PF 0.5 ML SYR (>=10YO) IM PRN (18:29)
[2020-02-01] MEDS ORDERED: PSEUDOEPHEDRINE HCL 30 MG TABLET PO PRN (18:29)
[2020-02-01] MEDS ORDERED: ZOLPIDEM TARTRATE 5 MG TABLET PO PRN (18:29)
[2020-02-01] MEDS ORDERED: ACETAMINOPHEN 650 MG SUPP.RECT PR PRN (18:29)
[2020-02-01] MEDS ORDERED: NA PHOS,M-B/NA PHOS,DI-BA (ADULT) 133 ML ENEMA PR PRN (18:29)
[2020-02-01] MEDS ORDERED: GLYCERIN/WITCH HAZEL LEAF 1 EACH MED..WIPE TP PRN (18:29)
[2020-02-01] MEDS ORDERED: NICOTINE 21 MG/24 HR PATCH.TD24 TD PRN (18:32)
[2020-02-01] MEDS ORDERED: IBUPROFEN 800 MG TABLET ONE (18:39)
[2020-02-01] MEDS ORDERED: BENZOCAINE/MENTHOL AEROSOL SPRAY 56 ML ONE (18:39)
--- NOTE | 2020-02-01 19:22 | Delivery Summary ---
Del Sum A-C Datetime Report Generated by CPN: 02/01/2020 19:22 DELIVERY PERSONNEL DELIVERY PERSONNEL: [id number] Delivery Doctor:: Kristy Cooper MD Labor and Delivery Nurse:: Airam Marie RNcertified orthotist practice manager Nurse:: MARIANA Riley Nursery Nurse:: Naomy Marroquin RN Personnel Specialist/[employer] APPLICATION ARCHITECT: Michelle Messer CST Personnel Specialist/[employer] APPLICATION ARCHITECT: Mariama Posada, MACHINE WASHER MATERNAL INFORMATION Delivery Anesthesia: None Medications After Delivery: Pitocin Bolus-Please Comment; Pitocin 30 Units in 500ml NS/D5W Estimated Blood Loss (ml): 300 cc Delivery QBL: 300 Maternal Complications: None Provider Comments: Called to patients room completely dilated, +2 station. She pushed through a few contractions and delivered a viable female . was vigorous at delivery. Cord clamping delayed approx 30 seconds. After cord doubly clamped and cut, infant placed to maternal chest. Nursery in attendance. Both mother and infant stable. LABOR SUMMARY EDC: 02/04/2020 00:00 No. Babies in Womb: 1 Attempted: No Labor Anesthesia: None LABOR INFORMATION Reason for Induction: Maternal Diabetes Onset of Labor: 02/01/2020 13:32 Complete Dilatation: 02/01/2020 17:46 Cervical Ripening Agents: Cervidil Oxytocin: Induction Group B Beta Strep: pos Antibiotics # of Doses: 3 Antibiotics Time of Last Dose: 1700 Name of Antibiotic Given: Penicillin Steroids Given: None Reason Steroids Not Administered: Not Applicable MEMBRANES Membranes Rupture Method: Artificial Rupture of Membranes: 02/01/2020 13:32 Length of Rupture (hr): 4.40 Amniotic Fluid Color: Light Meconium Amniotic Fluid Amount: Small Amniotic Fluid Odor: Normal STAGES OF LABOR Stage 1 hr: 4 Stage 1 min: 14 Stage 2 hr: 0 Stage 2 min: 10 Stage 3 hr: 0 Stage 3 min: 5 Total Time in Labor hr: 4 Total Time in Labor min: 29 VAGINAL DELIVERY Episiotomy: None Laceration #1: Periurethral Laceration Extension #1: N/A Laceration Repair: Yes Laceration Repair Note: Repaired with 3-0 chromic on an SH needle in a running fashion. Laceration ran from below clitoris to the urethera. A red rubber catheter was placed under sterile technique to empty bladder and left in place while laceration repaired. This was removed after laceration repair was complete. Sponge Count Correct: N/A Sharps Count Correct: N/A CSECTION DELIVERY Primary Indication: N/A Secondary Indication: N/A CSection Incidence: N/A Labor: N/A Elective: N/A CSection Incision: N/A BABY A INFORMATION Delivery Date/Time: 02/01/2020 17:56 Method of Delivery: Vaginal Nurse Controlled Delivery: No Born in Route : No : N/A Forceps: N/A Vacuum Extraction: N/A Shoulder Dystocia : No PRESENTATION/POSITION BABY A Presentation: Cephalic Cephalic Presentation: Vertex Vertex Position: Left Occipital Anterior Breech Presentation: N/A PLACENTA INFORMATION BABY A Placenta Delivery Time : 02/01/2020 18:01 Placenta Method of Delivery: Spontaneous Placenta Status: Delivered SCORES BABY A Heart Rate 1 min: >100 bpm Resp Effort 1 min: Good Cry Reflex Irritability 1 min: Cough or Sneeze or Pulls Away Muscle Tone 1 min: Active Motion Color 1 min: Blue/Pale Resuscitation Effort 1 min: Tactile Stimulation SCORE 1 MIN: 8 Heart Rate 5 min: >100 bpm Resp Effort 5 min: Good Cry Reflex Irritability 5 min: Cough or Sneeze or Pulls Away Muscle Tone 5 min: Active Motion Color 5 min: Body [place], Extremities Blue Resuscitation Effort 5 min: Tactile Stimulation SCORE 5 MIN: 9 Resuscitation Effort 10 min: N/A INFORMATION BABY A Gestational Age at Delivery: 39.4 Gestational Status: Full Term- 39- 40.6 Weeks Infant Outcome : Liveborn Condition : Stable Infant Sex: Female IDENTIFICATION BABY A Infant Verification Date/Time: 02/01/2020 18:17 ID Band Number: [id number] Mother's Name Verified: Yes Infant RN Verifying Infant: Anna [place] [facility] Additional Verifying Personnel: Naomy AnnalisaOmnyPay RN WEIGHT/LENGTH BABY A Infant Birthweight (gm): 2958 Weight (lb): 6 Infant Weight (oz): 8 Infant Length (in): 19.75 Length (cm): 50.17 CORD INFORMATION BABY A No. Cord Vessels: 3 Nuchal Cord : N/A Cord Blood Taken: Yes-For Eval (Mom's Blood Type - or O+) Suction: Mouth ASSESSMENT BABY A Physical Findings- Other: Dr. Mehandra called to assess infant breathing. Infant Respirations: Grunting Skin to Skin: Yes Feather Edger/ALS Called : Yes Transferred To: Nursery BABY B INFORMATION : N/A SIGNATURES Signature: with User ID: Nixon : with User ID: Nixon
--- NOTE | 2020-02-01 20:29 | Warning Signs in Babies ---
VOD Warning Signs Datetime Report Generated by N: 02/01/2020 20:29 VOD#[id number] -Warning Signs in Babies: Viewed with Parent(s)/Family (02/01/2020 19:45:Maria G White RN)
[2020-02-01] MEDS: IBUPROFEN 800 MG TABLET PO SCH (21:18)
[2020-02-01] MEDS: NICOTINE 21 MG/24 HR PATCH.TD24 TD SCH (21:30)
[2020-02-02] MEDS: FAMOTIDINE 20 MG TABLET PO SCH ×3 (00:05→22:15)
[2020-02-02] MEDS: IBUPROFEN 800 MG TABLET PO SCH ×3 (03:31→17:46)
[2020-02-02 07:42] LABS: HEMATOCRIT 37.2 % (36.0-47.0); HEMOGLOBIN 12.8 g/dL (12.0-15.5); MEAN CORPUSCULAR HEMOGLOBIN 31.2 pg (27.0-33.4); MEAN CORPUSCULAR HGB CONC 34.3 g/dL (32.0-36.0); MEAN CORPUSCULAR VOLUME 91 fl (80-97); PLATELET COUNT 174 10^3/uL (150-450); RED BLOOD COUNT 4.09 10^6/uL (3.72-5.28); WHITE BLOOD COUNT 13.8 10^3/uL (4.0-10.5)
[2020-02-02] MEDS: SENNOSIDES/DOCUSATE 8.6-50 MG 1 EACH TABLET PO SCH (09:08)
[2020-02-02] MEDS: FERROUS SULFATE 325 MG TABLET PO SCH ×2 (09:08→17:53)
[2020-02-02] MEDS: PRENATAL VITAMIN W DHA CAPSULE PO SCH (09:08)
[2020-02-02] MEDS: DOCUSATE SODIUM 100 MG CAPSULE PO SCH ×2 (09:08→17:47)
[2020-02-02] MEDS: NICOTINE 21 MG/24 HR PATCH.TD24 TD SCH (09:09)
--- NOTE | 2020-02-02 15:17 | PDOC PROGRESS REPORT ---
Subjective-OB Progress Note for:: 02/02/20 Subjective: 39 yo G4 now P2 s/p ppd 1. Ambulating and voiding without difficulty. Reports pain well controlled with medication, no concerns today. Physical Exam (OB) Vital Signs: Temp Pulse Resp BP Pulse Ox 97.6 F 74 16 133/59 H 99 02/02/20 08:00 02/02/20 08:00 02/02/20 08:00 02/02/20 08:00 02/02/20 08:00 Intake & Output 02/01/20 02/02/20 02/03/20 06:59 06:59 06:59 Weight 117.1 kg - General General Appearance: Appears well In distress: None - PIH/Pre-Eclampsia Clonus: Negative Headache: Absent Epigastric Pain: No Visual Changes: No - Episiotomy/Laceration Site Condition: Well Approximated - Lochia Lochia Amount: Scant < 10 ml Lochia Color: Rubra/Red - Abdomen Description: Soft Hernia Present: No Fundal Description: Firm, Midline Fundal Height: u/u - u/2 - Respiratory Respiratory Status: No respiratory distress - Extremities Upper extremity: Normal inspection Lower extremities: Normal inspection - Neurological Cognition: Normal Orientation: AAOx4 - Psychological Associated symptoms: Normal affect, Normal mood Objective-Diagnostic Laboratory: 02/02/20 07:20 02/02/20 02/02/20 07:20 07:20 WBC 13.8 H RBC 4.09 Hgb 12.8 Hct 37.2 MCV 91 MCH 31.2 MCHC 34.3 RDW 14.0 Plt Count 174 Blood Type A NEGATIVE Assessment and Plan(PN) - Assessment and Plan (1) GDM, class A2 Is this a current diagnosis for this admission?: Yes Plan: delivered (2) Smoker Is this a current diagnosis for this admission?: Yes Plan: cessation encouraged (3) Vaginal delivery Is this a current diagnosis for this admission?: Yes Plan: routine pp care - Time Spent with Patient Time with patient: Less than 15 minutes Smoking Education Provided: Over 3 minutes Medications reviewed and adjusted accordingly: Yes - Disposition Anticipated Discharge: Home Within: within 24 hours
[2020-02-03] MEDS: IBUPROFEN 800 MG TABLET PO SCH ×2 (02:00→09:03)
[2020-02-03] MEDS: NICOTINE 21 MG/24 HR PATCH.TD24 TD SCH (09:03)
[2020-02-03] MEDS: FERROUS SULFATE 325 MG TABLET PO SCH ×2 (09:03→12:21)
[2020-02-03] MEDS: FAMOTIDINE 20 MG TABLET PO SCH (09:03)
[2020-02-03] MEDS: DOCUSATE SODIUM 100 MG CAPSULE PO SCH (09:03)
[2020-02-03] MEDS: SENNOSIDES/DOCUSATE 8.6-50 MG 1 EACH TABLET PO SCH (09:03)
[2020-02-03] MEDS: PRENATAL VITAMIN W DHA CAPSULE PO SCH (09:03)
[2020-02-03 11:13] VITALS: BP 133/59
--- NOTE | 2020-02-03 12:10 | PDOC DISCHARGE SUMMARY ---
Impression - Admit/DC Date/PCP Admission Date/Primary Care Provider: 01/31/20 22:10 MARINO LIRA Discharge Date: 02/03/20 - Additional Information Resuscitation Status: Full Code Discharge Diet: Regular Discharge Activity: Balance Activity w/Rest Referrals: MELLO AUSTIN FNP-C [Primary Care Provider] - Prescriptions: Ibuprofen [Motrin 800 mg Tablet] 800 mg PO Q8HP PRN #30 tablet PRN Reason: For Pain Scale 1-3 Home Medications: Ibuprofen [Motrin 800 mg Tablet] 800 mg PO Q8HP PRN #30 tablet 02/03/20 HPI Reason(s) for Admission: Induction of Labor Procedures: NST Intrapartum Procedure(s): Spontaneous Vaginal Delivery Complication(s): Laceration-Vaginal Laceration-Degree: 1st Results Laboratory Results: WBC 13.8 10^3/uL (4.0-10.5) H 02/02/20 07:20 RBC 4.09 10^6/uL (3.72-5.28) 02/02/20 07:20 Hgb 12.8 g/dL (12.0-15.5) 02/02/20 07:20 Hct 37.2 % (36.0-47.0) 02/02/20 07:20 MCV 91 fl (80-97) 02/02/20 07:20 MCH 31.2 pg (27.0-33.4) 02/02/20 07:20 MCHC 34.3 g/dL (32.0-36.0) 02/02/20 07:20 RDW 14.0 % (11.5-14.0) 02/02/20 07:20 Plt Count 174 10^3/uL (150-450) 02/02/20 07:20 Lymph % (Auto) 17.3 % (13-45) 01/31/20 23:04 [place] % (Auto) 3.1 % (3-13) 01/31/20 23:04 Eos % (Auto) 0.6 % (0-6) 01/31/20 23:04 Baso % (Auto) 0.4 % (0-2) 01/31/20 23:04 Absolute Neuts (auto) 10.9 10^3/uL (1.7-8.2) H 01/31/20 23:04 Absolute Lymphs (auto) 2.4 10^3/uL (0.5-4.7) 01/31/20 23:04 Absolute Monos (auto) 0.4 10^3/uL (0.1-1.4) 01/31/20 23:04 Absolute Eos (auto) 0.1 10^3/uL (0.0-0.6) 01/31/20 23:04 Absolute Basos (auto) 0.1 10^3/uL (0.0-0.2) 01/31/20 23:04 Seg Neutrophils % 78.6 % (42-78) H 01/31/20 23:04 POC Glucose 158 mg/dL (70-110) H 01/31/20 23:23 Urine Color YELLOW 01/31/20 22:21 Urine Appearance CLEAR 01/31/20 22:21 Urine pH 7.0 (5.0-9.0) 01/31/20 22:21 Ur Specific [place] 1.015 01/31/20 22:21 Urine Protein NEGATIVE mg/dL (NEGATIVE) 01/31/20 22:21 Urine Glucose (UA) NEGATIVE mg/dL (NEGATIVE) 01/31/20 22:21 Urine Ketones NEGATIVE mg/dL (NEGATIVE) 01/31/20 22:21 Urine Blood NEGATIVE (NEGATIVE) 01/31/20 22:21 Urine Nitrite NEGATIVE (NEGATIVE) 01/31/20 22:21 Urine Bilirubin NEGATIVE (NEGATIVE) 01/31/20 22:21 Urine Urobilinogen NEGATIVE mg/dL (<2.0) 01/31/20 22:21 Ur Leukocyte Esterase LARGE (NEGATIVE) H 01/31/20 22:21 Urine Ascorbic Acid 20 (NEGATIVE) H 01/31/20 22:21 Urine Opiates Screen NEGATIVE 01/31/20 22:21 Urine Methadone Screen NEGATIVE 01/31/20 22:21 Ur Barbiturates Screen NEGATIVE 01/31/20 22:21 Ur Phencyclidine Scrn NEGATIVE 01/31/20 22:21 Ur Amphetamines Screen NEGATIVE 01/31/20 22:21 U Benzodiazepines Scrn NEGATIVE 01/31/20 22:21 Urine Cocaine Screen NEGATIVE 01/31/20 22:21 U Marijuana (THC) Screen UNCONFIRMED POSITIVE 01/31/20 22:21 RPR NONREACTIVE (NONREACTIVE) 01/31/20 23:04 Blood Type A NEGATIVE 02/02/20 07:20 Antibody Screen NEGATIVE 01/31/20 23:04 Screen NEGATIVE 02/02/20 07:20 Plan Plan of Treatment: RX sent to [facility] Time Spent: Less than 30 Minutes
== END 2020-02-03 12:40 | disposition home or self-care (01) | DRG 768 ==
LOC: LR 22:10 → 2S 02-01 20:55
PROVIDERS: ADMIT Obstetrics & Gynecology; ATTEND Obstetrics & Gynecology
PROC: 10E0XZZ Delivery of Products of Conception, External Approach (ICD-10-PCS; principal; 2020-02-01)
PROC: 0TQDXZZ Repair Urethra, External Approach (ICD-10-PCS; 2020-02-01)
PROC: 3E0234Z Introduction of Serum, Toxoid and Vaccine into Muscle, Percutaneous Approach (ICD-10-PCS; 2020-02-02)
PROC: 3E0234Z Introduction of Serum, Toxoid and Vaccine into Muscle, Percutaneous Approach (ICD-10-PCS; 2020-02-03)
DX: O24.429 Gestational diabetes mellitus in childbirth, unspecified control (principal); Z37.0 Single live birth; O71.5 Other obstetric injury to pelvic organs; O99.334 Smoking (tobacco) complicating childbirth; O26.893 Other specified pregnancy related conditions, third trimester; Z67.11 Type A blood, Rh negative; F17.210 Nicotine dependence, cigarettes, uncomplicated; O99.824 Streptococcus B carrier state complicating childbirth; O77.0 Labor and delivery complicated by meconium in amniotic fluid; Z23 Encounter for immunization
CPT/HCPCS: 36415; 80307; 80349; 81005; 82962; 85025; 85027; 85461; 86592; 86850; 86900; 86901; 90715; G0480; J2540; J2550; J2590; J2790; J3490; J7060